=== PATIENT | male | born 1965 | race African-American/Black ===

== ENCOUNTER 2017-12-24 11:40 | Emergency (ER) | payer SELFPAY ==
[~2017-12-24] VITALS: Ht 190.5 cm; Wt 105.0 kg
[2017-12-24] MEDS ORDERED: HYDROMORPHONE HCL/PF 2MG/ML CPJ IM ONE (12:45)
[2017-12-24 13:18] VITALS: BP 171/102
== END 2017-12-24 14:08 | disposition left against medical advice (07) ==
LOC: ER 13:09
DX: S02.609D Fracture of mandible, unspecified, subsequent encounter for fracture with routine healing (principal); G43.909 Migraine, unspecified, not intractable, without status migrainosus; F17.200 Nicotine dependence, unspecified, uncomplicated; Z88.6 Allergy status to analgesic agent; Z98.890 Other specified postprocedural states; X58.XXXD Exposure to other specified factors, subsequent encounter
CPT/HCPCS: 96372; 99283; J1170; Z7610

== ENCOUNTER 2018-02-01 09:50 | Emergency (ER) | payer SELFPAY ==
[~2018-02-01] VITALS: Ht 190.5 cm; Wt 105.0 kg
[2018-02-01] MEDS ORDERED: HYDR-4009 PO (10:04)
[2018-02-01] MEDS ORDERED: ERGO1TAB PO (10:04)
[2018-02-01] MEDS ORDERED: ONDA8TAB6 PO (10:04)
[2018-02-01] MEDS ORDERED: METO-293 PO (10:04)
[2018-02-01] MEDS ORDERED: COM10 PO (10:04)
[2018-02-01] MEDS ORDERED: HYDROMORPHONE HCL/PF 2MG/ML CPJ IM ONE (10:30)
[2018-02-01] MEDS ORDERED: HYDROMORPHONE HCL/PF 2MG/ML CPJ IM NR (10:30)
[2018-02-01 10:57] VITALS: BP 164/102
== END 2018-02-01 11:36 | disposition home or self-care (01) ==
LOC: ER 09:50
DX: G43.909 Migraine, unspecified, not intractable, without status migrainosus (principal); Z98.890 Other specified postprocedural states; Z79.899 Other long term (current) drug therapy; Z88.5 Allergy status to narcotic agent; Z88.8 Allergy status to other drugs, medicaments and biological substances
CPT/HCPCS: 96372; 99283; J1170

== ENCOUNTER 2018-02-23 11:32 | Emergency (ER) | payer SELFPAY ==
[~2018-02-23] VITALS: Ht 190.5 cm; Wt 104.0 kg
[~2018-02-23 11:32] MED LIST: COM10 PO; ERGO1TAB PO; HYDR-4009 PO; METO-293 PO; ONDA8TAB6 PO
[2018-02-23] MEDS ORDERED: HYDROMORPHONE HCL/PF 2MG/ML CPJ IM ONE (13:15)
[2018-02-23 13:33] VITALS: BP 132/82
== END 2018-02-23 13:59 | disposition home or self-care (01) ==
LOC: ER 11:57
DX: G89.29 Other chronic pain (principal); G43.909 Migraine, unspecified, not intractable, without status migrainosus; F17.200 Nicotine dependence, unspecified, uncomplicated; Z87.81 Personal history of (healed) traumatic fracture; Z98.890 Other specified postprocedural states; Z88.8 Allergy status to other drugs, medicaments and biological substances
CPT/HCPCS: 96372; 99283; J1170

== ENCOUNTER 2018-03-28 05:43 | Emergency (ER) | payer SELFPAY ==
[~2018-03-28] VITALS: Ht 190.5 cm; Wt 104.0 kg
[2018-03-28] MEDS ORDERED: HYDROMORPHONE HCL/PF 2MG/ML CPJ IM STA ×2 (06:55→07:58)
[2018-03-28 08:01] VITALS: BP 155/89
== END 2018-03-28 08:53 | disposition home or self-care (01) ==
LOC: ER 05:43
DX: R68.84 Jaw pain (principal); G89.29 Other chronic pain; Z88.6 Allergy status to analgesic agent; Z88.8 Allergy status to other drugs, medicaments and biological substances
CPT/HCPCS: 96372; 99283; J1170

== ENCOUNTER 2018-08-20 05:05 | Inpatient (IN) | payer SELFPAY ==
[~2018-08-20] VITALS: Ht 190.5 cm; Wt 101.2 kg
[2018-08-20] MEDS ORDERED: MORPHINE SULFATE 4 MG/ML CPJ (NOT FOR IM USE) IV STA (08:22)
[2018-08-20] MEDS ORDERED: SODIUM CHLORIDE 0.9% 1,000 ML IV ONE (08:22)
[2018-08-20] MEDS ORDERED: ONDANSETRON HCL 4MG/2ML INJ IV STA (08:22)
[2018-08-20] MEDS ORDERED: NITROGLYCERIN 0.4MG TABLET SL SL PRN (08:30)
[2018-08-20] MEDS ORDERED: ASPIRIN 81MG TABLET PO ONE (08:30)
[2018-08-20 08:36] LABS: EOSINOPHILS % 1.9 % (0.0-5.0); HEMATOCRIT. 46.5 % (42.0-52.0); HEMOGLOBIN. 15.8 g/dL (14.0-18.0); LYMPHOCYTES % 42.1 % (20.0-50.0); MEAN CORPUSCULAR HEMOGLOBIN 32.3 pg (28.0-32.0); MEAN PLATELET VOLUME 9.1 fl (7.4-10.4); MONOCYTES % 7.1 % (2.0-8.0); NEUTROPHILS % 47.9 % (40.0-76.0); PLATELET 260 x1000/uL (130-400); RED BLOOD CELL COUNT 4.89 mill/uL (4.7-6.1); RED CELL DISTRIBUTION WIDTH 13.2 % (11.6-14.6)
[2018-08-20 08:41] LABS: CHLORIDE 105 mEq/L (98-107)
[2018-08-20 08:48] LABS: D-DIMER < 0.19 mg/L FEU (<0.50); INR 0.9; PARTIAL THROMBOPLASTIN TIME 26.6 sec (23.4-31.0); PROTHROMBIN TIME 9.7 sec (9.6-11.0)
[2018-08-20] MEDS ORDERED: MORPHINE SULFATE 4 MG/ML CPJ (NOT FOR IM USE) IV SCH (12:17)
[2018-08-20 14:55] LABS: *AMPHETAMINES SCREEN URINE NEGATIVE (NEGATIVE); *BARBITURATES SCREEN URINE NEGATIVE (NEGATIVE); *BENZODIAZEPINES SCREEN URINE NEGATIVE (NEGATIVE); *COCAINE SCREEN URINE NEGATIVE (NEGATIVE); METHADONE URINE SCREEN NEGATIVE (NEGATIVE)
[2018-08-20 14:56] LABS: CANNABINOID URINE SCREEN NEGATIVE (NEGATIVE); OPIATES URINE SCREEN PRESUMTIVE POSITIVE (NEGATIVE); PHENCYCLIDINE URINE SCREEN NEGATIVE (NEGATIVE)
[2018-08-20 15:00] VITALS: BP 166/98
[2018-08-20 16:00] VITALS: BP 164/104
[2018-08-20] MEDS ORDERED: IPRATROPIUM/ALBUTEROL 0.5-3(2.5)MG/3ML NEB INH PRN (16:30)
[2018-08-20] MEDS ORDERED: GUAIFENESIN 200MG/10ML SUGAR FREE UDC PO PRN (16:30)
[2018-08-20] MEDS ORDERED: ACETAMINOPHEN 325MG TABLET PO PRN (16:30)
[2018-08-20] MEDS ORDERED: NA PHOS,M-B/NA PHOS,DI-BA ENEMA 118ML PR PRN (16:30)
[2018-08-20] MEDS ORDERED: DOCUSATE SODIUM 100MG CAPSULE PO PRN (16:30)
[2018-08-20] MEDS ORDERED: DIPHENHYDRAMINE 50MG/ML VIAL IV PRN (16:30)
[2018-08-20] MEDS ORDERED: DEXTROSE 50% WATER 50ML SYRINGE IV PRN (16:30)
[2018-08-20] MEDS ORDERED: HYDROCODONE/ACETAMINOPHEN 5/325MG TABLET PO PRN (16:30)
[2018-08-20] MEDS ORDERED: CLONIDINE 0.1MG TABLET PO PRN (16:30)
[2018-08-20] MEDS ORDERED: ACETAMINOPHEN 650MG/20.3ML UDC GT PRN (16:30)
[2018-08-20] MEDS ORDERED: ACETAMINOPHEN 650MG SUPP PR PRN (16:30)
[2018-08-20] MEDS: HYDROMORPHONE HCL/PF 2MG/ML CPJ IV PRN ×3 (16:37→23:57)
[2018-08-20] MEDS ORDERED: ENOXAPARIN 40MG/0.4ML SYR SUBCUT SCH (17:00)
[2018-08-20] MEDS: BLOOD SUGAR DIAGNOSTIC STRIP TEST SCH ×2 (17:10→20:23)
[2018-08-20] MEDS ORDERED: METF-414 MT (17:10)
[2018-08-20] MEDS: ASPIRIN 81MG TABLET PO SCH (18:13)
[2018-08-20] MEDS: PANTOPRAZOLE SODIUM 40 MG/VIAL IV SCH (18:14)
[2018-08-20] MEDS: INSULIN LISPRO 100 UNITS/ML SUBCUT SCH ×2 (18:29→20:23)
[2018-08-20 20:00] VITALS: BP 154/86
[2018-08-20] MEDS: SODIUM CHLORIDE 0.9% INJ 3ML FLUSH IVF SCH (20:20)
[2018-08-21] VITALS: BP 124/84
[2018-08-21 00:09] LABS: CREATINE KINASE 90 IU/L (39-308); CREATINE KINASE MB FRACTION < 1.0 ng/mL (0.5-3.6)
[2018-08-21 04:00] VITALS: BP 168/94
[2018-08-21] MEDS: HYDROMORPHONE HCL/PF 2MG/ML CPJ IV PRN ×6 (04:00→22:50)
[2018-08-21 06:27] LABS: BASOPHILS % 0.7 % (0.0-2.0); EOSINOPHILS % 1.8 % (0.0-5.0); HEMATOCRIT. 40.7 % (42.0-52.0); LYMPHOCYTES % 45.9 % (20.0-50.0); MEAN CORPUSCULAR HEMOGLOBIN 32.5 pg (28.0-32.0); MEAN CORPUSCULAR VOLUME 94.8 fL (80.0-94.0); MEAN PLATELET VOLUME 9.2 fl (7.4-10.4); MONOCYTES % 8.5 % (2.0-8.0); NEUTROPHILS % 43.1 % (40.0-76.0); PLATELET 223 x1000/uL (130-400)
[2018-08-21] MEDS: SODIUM CHLORIDE 0.9% INJ 3ML FLUSH IVF SCH ×3 (06:31→20:57)
[2018-08-21] MEDS: INSULIN LISPRO 100 UNITS/ML SUBCUT SCH ×4 (06:31→21:01)
[2018-08-21] MEDS: BLOOD SUGAR DIAGNOSTIC STRIP TEST SCH ×4 (06:31→21:01)
[2018-08-21 06:44] LABS: CHLORIDE 106 mEq/L (98-107)
[2018-08-21 06:52] LABS: CREATINE KINASE 78 IU/L (39-308)
[2018-08-21 06:53] LABS: HDL CHOLESTEROL 97 mg/dL (40-59)
[2018-08-21 07:05] LABS: LDL CHOLESTEROL 54 mg/dL (5-100)
[2018-08-21 08:00] VITALS: BP 131/80
[2018-08-21] MEDS: PANTOPRAZOLE SODIUM 40 MG/VIAL IV SCH (08:02)
[2018-08-21] MEDS: ASPIRIN 81MG TABLET PO SCH (08:03)
[2018-08-21 09:05] LABS: T4 FREE 0.97 ng/dL (0.76-1.46)
[2018-08-21] MEDS ORDERED: REGADENOSON 0.4 MG/5 ML IV ONE (10:30)
[2018-08-21 12:00] VITALS: BP 134/78
[2018-08-21 16:00] VITALS: BP_SYST 134; BP_SYST 137; BP_DIAS 92; BP_DIAS 94
[2018-08-21] MEDS: ENOXAPARIN 30MG/0.3ML SYR SUBCUT SCH (17:33)
[2018-08-21 18:07] LABS: CREATINE KINASE 80 IU/L (39-308)
[2018-08-21 18:08] LABS: CREATINE KINASE MB FRACTION 1.1 ng/mL (0.5-3.6)
[2018-08-21 20:00] VITALS: BP 144/98
[2018-08-22] VITALS: BP 124/81
[2018-08-22 01:53] LABS: CREATINE KINASE 85 IU/L (39-308)
[2018-08-22 01:54] LABS: CREATINE KINASE MB FRACTION 1.4 ng/mL (0.5-3.6)
[2018-08-22] MEDS: HYDROMORPHONE HCL/PF 2MG/ML CPJ IV PRN ×2 (03:17→07:23)
[2018-08-22 04:00] VITALS: BP 142/81
[2018-08-22] MEDS: SODIUM CHLORIDE 0.9% INJ 3ML FLUSH IVF SCH (06:39)
[2018-08-22] MEDS: INSULIN LISPRO 100 UNITS/ML SUBCUT SCH (06:40)
[2018-08-22] MEDS: BLOOD SUGAR DIAGNOSTIC STRIP TEST SCH (06:41)
[2018-08-22 08:00] VITALS: BP 156/100
[2018-08-22] MEDS ORDERED: REGADENOSON 0.4 MG/5 ML IV ONE (08:22)
[2018-08-22 08:23] LABS: CREATINE KINASE 92 IU/L (39-308)
[2018-08-22 08:24] LABS: CREATINE KINASE MB FRACTION 1.1 ng/mL (0.5-3.6)
[2018-08-22] MEDS ORDERED: FAMOTIDINE 20MG TABLET PO SCH (09:00)
[2018-08-22] MEDS: ASPIRIN 81MG TABLET PO SCH (09:00)
[2018-08-22] MEDS: ENOXAPARIN 30MG/0.3ML SYR SUBCUT SCH (09:00)
[2018-08-22 10:01] VITALS: BP 150/90
== END 2018-08-22 10:20 | disposition home or self-care (01) | DRG 198 ==
LOC: ER 05:05 → 8WST 09:36 → EDBEDREQ 09:40 → ENRESERV 12:14
PROVIDERS: ADMIT Family Medicine; ATTEND Family Medicine
DX: R07.89 Other chest pain (principal); I25.10 Atherosclerotic heart disease of native coronary artery without angina pectoris; E11.9 Type 2 diabetes mellitus without complications; E78.5 Hyperlipidemia, unspecified; F17.200 Nicotine dependence, unspecified, uncomplicated; I10 Essential (primary) hypertension; M54.30 Sciatica, unspecified side; G89.29 Other chronic pain; Z88.8 Allergy status to other drugs, medicaments and biological substances; I25.2 Old myocardial infarction
CPT/HCPCS: 36415; 71045; 78452; 80061; 80305; 82550; 82553; 82962; 83036; 83880; 84439; 84443; 84484; 85379; 93005; 93017; 93306; 96361; 96374; 96375; 96376; 99285; A9500; C9113; J1170; J1650; J1815; J2270; J2405; J2785; J7030

== ENCOUNTER 2018-12-12 09:50 | Emergency (ER) | payer SELFPAY ==
[~2018-12-12] VITALS: Ht 190.5 cm; Wt 102.0 kg
[~2018-12-12 09:50] MED LIST changes: +METF-414 MT
[2018-12-12] MEDS ORDERED: MORPHINE SULFATE 10 MG/ML CPJ IM ONE (10:30)
[2018-12-12] MEDS ORDERED: ONDANSETRON 4MG ODT PO ONE (10:30)
[2018-12-12 10:32] VITALS: BP 184/100
== END 2018-12-12 11:05 | disposition home or self-care (01) ==
LOC: ER 09:50
DX: M54.42 Lumbago with sciatica, left side (principal); G43.909 Migraine, unspecified, not intractable, without status migrainosus
CPT/HCPCS: 96372; 99283; J2270; Q0162